=== PATIENT | male | born 1985 | race Two or more races ===

== ENCOUNTER 2018-11-05 19:24 | Emergency (ER) | payer OTHER ==
[~2018-11-05] VITALS: Ht 177.8 cm; Wt 108.9 kg
[2018-11-05 20:10] VITALS: BP 143/92
[2018-11-06] MEDS ORDERED: IBUPROFEN 800 MG TAB PO ONE (02:45)
== END 2018-11-06 03:32 | disposition home or self-care (01) ==
LOC: ER 19:24
DX: S63.502A Unspecified sprain of left wrist, initial encounter (principal); X50.0XXA Overexertion from strenuous movement or load, initial encounter; Y93.89 Activity, other specified; Y92.69 Other specified industrial and construction area as the place of occurrence of the external cause; Y99.8 Other external cause status
CPT/HCPCS: 73080; 73110

== ENCOUNTER → 2022-09-13 | Outpatient (CLI) | payer MEDICAID ==
[~2022-09-13] MED LIST: IOHEXOL 350 MG/ML 100ML IJ ONE
[2022-09-13 13:45] VITALS: BP 108/82
[2022-09-13 13:59] VITALS: BP 122/91
== END | disposition home or self-care (01) ==
LOC: Rad HDHVI 13:11
PROVIDERS: ATTEND Internal Medicine Cardiovascular Disease
DX: R00.2 Palpitations (principal); R06.02 Shortness of breath; I82.409 Acute embolism and thrombosis of unspecified deep veins of unspecified lower extremity
CPT/HCPCS: 71275; 93306; G0463; Q9967

== ENCOUNTER → 2022-09-18 | Outpatient (CLI) | payer MEDICAID ==
[~2022-09-18] VITALS: Ht 177.8 cm; Wt 104.3 kg
[~2022-09-18] MED LIST changes: +ADENOSINE 88 MG in GIVE UN-DILUTED 0 ML IV ONE; +ADENOSINE 90 MG/30 ML INJ IV ONE; -IOHEXOL 350 MG/ML 100ML IJ ONE
== END | disposition home or self-care (01) ==
LOC: Rad HDHVI 08:22
PROVIDERS: ATTEND Internal Medicine Cardiovascular Disease
DX: R06.02 Shortness of breath (principal); R00.2 Palpitations; R60.9 Edema, unspecified; I10 Essential (primary) hypertension; I82.409 Acute embolism and thrombosis of unspecified deep veins of unspecified lower extremity
CPT/HCPCS: 78452; 93005; 96374; 96375; A9500; J0153

== ENCOUNTER → 2022-09-27 | Outpatient (CLI) | payer MEDICAID | END | disposition home or self-care (01) | LOC: Rad HDHVI 15:48 | PROVIDERS: ATTEND Internal Medicine Cardiovascular Disease | DX: I82.409 Acute embolism and thrombosis of unspecified deep veins of unspecified lower extremity (principal); R60.9 Edema, unspecified | CPT/HCPCS: 93970 ==